=== PATIENT | male | born 1965 | race Caucasian/White ===

== ENCOUNTER 2019-04-14 17:56 | Emergency (ER) | payer BC ==
[~2019-04-14] VITALS: Ht 198.1 cm; Wt 150.0 kg
[~2019-04-14 17:56] MED LIST: ALLO100T PO; AMBR5TAB3 PO; ASPI81TA30 PO; ATOR40TA PO; FURO-150 PO; LISI-600 PO; POTA10CA44 PO; SILD20TA PO; SPIR25TA5 PO; SYN0.088T PO; TREP10VI SQ
[2019-04-14] MEDS ORDERED: normal saline 1000ml 1,000 ML IV ONE (20:15)
[2019-04-14 20:55] LABS: BASOPHILS # (AUTO) 0.1 X10'3 (0-0.2); BASOPHILS % (AUTO) 0.7 % (0-1); EOSINOPHILS # (AUTO) 0.1 X10'3 (0-0.9); EOSINOPHILS % (AUTO) 0.6 % (0-6); HEMATOCRIT 42.3 % (42.0-52.0); HEMOGLOBIN 13.7 g/dl (14.0-17.9); LYMPHOCYTES # (AUTO) 1.5 X10'3 (1.1-4.8); LYMPHOCYTES % (AUTO) 11.6 % (21-51); MEAN CORPUSCULAR HEMOGLOBIN 28.8 PG (27.0-31.0); MEAN CORPUSCULAR HGB CONC 32.4 g/dL (33.0-36.5); MEAN CORPUSCULAR VOLUME 88.8 FL (78-98); MEAN PLATELET VOLUME 6.7 FL (7.4-10.4); MONOCYTES # (AUTO) 0.6 X10'3 (0-0.9); NEUTROPHILS # (AUTO) 10.4 X10'3 (1.8-7.7); NEUTROPHILS % (AUTO) 82.1 % (42-75); PLATELET COUNT 207 X10'3 (140-440); RED BLOOD COUNT 4.77 X10'6 (4.70-6.10); RED CELL DISTRIBUTION WIDTH 16.1 % (11.5-14.5); WHITE BLOOD COUNT 12.7 X10'3 (4.5-11.0)
[2019-04-14 21:11] LABS: ALANINE AMINOTRANSFERASE 16 U/L (12-78); ALBUMIN 3.6 G/DL (3.4-5.0); ALBUMIN/GLOBULIN RATIO 1.1 (1.1-1.5); ALKALINE PHOSPHATASE 54 IU/L (46-116); ANION GAP 10 (8-16); ASPARTATE AMINO TRANSFERASE 10 U/L (10-37); BILIRUBIN,TOTAL 0.6 MG/DL (0.1-1.0); BLOOD UREA NITROGEN 45 MG/DL (7-18); CHLORIDE 96 MMOL/L (99-107); GLUCOSE 127 MG/DL (70-104); POTASSIUM 3.6 MMOL/L (3.5-5.1); SODIUM 135 MMOL/L (135-145); TOTAL CARBON DIOXIDE 28.8 MMOL/L (24-32); TOTAL PROTEIN 6.9 G/DL (6.4-8.2); eGFR 39 ML/MIN
[2019-04-14 21:21] LABS: MAGNESIUM 1.8 MG/DL (1.5-2.4)
[2019-04-14 21:43] VITALS: BP 127/50
== END 2019-04-14 22:03 | disposition home or self-care (01) ==
LOC: ER 17:57
DX: I10 Essential (primary) hypertension (principal); T50.995A Adverse effect of other drugs, medicaments and biological substances, initial encounter; E78.00 Pure hypercholesterolemia, unspecified; I27.20 Pulmonary hypertension, unspecified; H53.8 Other visual disturbances; R51 Headache; R79.1 Abnormal coagulation profile; Z79.82 Long term (current) use of aspirin; Z79.899 Other long term (current) drug therapy; Y92.89 Other specified places as the place of occurrence of the external cause
CPT/HCPCS: 36415; 71045; 80053; 83735; 83880; 84443; 84484; 85025; 85610; 93005; 99284; J7030

== ENCOUNTER 2019-07-20 12:24 | Outpatient (CLI) | payer BC | END 2019-07-20 23:59 | disposition home or self-care (01) | LOC: CARD DIAG 12:24 | PROVIDERS: ATTEND Internal Medicine | DX: I05.8 Other rheumatic mitral valve diseases (principal); I27.20 Pulmonary hypertension, unspecified; I11.9 Hypertensive heart disease without heart failure; R60.9 Edema, unspecified; Z87.891 Personal history of nicotine dependence | CPT/HCPCS: 93306 ==